=== PATIENT | female | born 1970 | race Caucasian/White ===

== ENCOUNTER 2016-08-09 12:48 | Emergency (ER) | payer OTHER ==
[~2016-08-09] VITALS: Ht 160 cm; Wt 95.3 kg
[2016-08-09 13:07] VITALS: BP 139/90
[2016-08-09] MEDS ORDERED: VENTOLIN HFA18 GM IH (16:16)
[2016-08-09] MEDS ORDERED: TRAMADOL HCL50 MG PO (17:29)
== END 2016-08-09 17:57 | disposition home or self-care (01) ==
LOC: EME 12:48 → RME 12:48
DX: R51 Headache (principal); Z86.73 Personal history of transient ischemic attack (TIA), and cerebral infarction without residual deficits
CPT/HCPCS: 70486; 99281; 99283

== ENCOUNTER 2017-06-25 11:54 | Emergency (ER) | payer OTHER ==
[~2017-06-25] VITALS: Ht 160 cm; Wt 97.6 kg
[~2017-06-25 11:54] MED LIST: TRAMADOL HCL50 MG PO; VENTOLIN HFA18 GM IH
[2017-06-25 12:22] LABS: HEMATOCRIT 37.8 % (36.0-46.0); MCH 31.7 PG (29.0-34.0); MCHC 35.4 G/DL (30.0-36.0); MCV 89.4 FL (83-99); MEAN PLAT.VOLUME 8.8 uM^3 (9.5-12.4); PLATELET COUNT 278 K/uL (156-360); RBC DIS.WIDTH-CV 11.9 % (11.8-14.6); RBC DIS.WIDTH-SD 38.1 % (39-53); RED BLOOD COUNT 4.23 M/uL (3.80-5.20)
[2017-06-25 12:35] LABS: CHLORIDE 105 mEq/L (99-109); SODIUM 140 mEq/L (136-147)
[2017-06-25 12:37] LABS: GLUCOSE 96 mg/dL (70-99)
[2017-06-25 12:38] LABS: ANION GAP 10 MEQ/L (2-14)
[2017-06-25 12:39] LABS: TOTAL BILIRUBIN 0.4 mg/dL (0.0-1.0)
[2017-06-25 12:40] LABS: ALKALINE PHOSPHATASE 81 IU/L (3-129)
[2017-06-25 12:41] LABS: GFR ESTIMATE (CALCULATED) > 59 mL/min/
[2017-06-25 12:42] LABS: UREA NITROGEN (BUN) 12 mg/dL (9-23)
[2017-06-25 12:50] LABS: QUANTITATIVE HCG < 4.0 MIU/ML
[2017-06-25 13:23] LABS: ADD MIUA? YES; BILIRUBIN NEGATIVE; BLOOD SMALL; COLOR YELLOW ((YELLOW)); GLUCOSE (STRIP) NEGATIVE; KETONES NEGATIVE; LEUKOCYTES NEGATIVE; NITRITE NEGATIVE; PROTEIN (STRIP) 30; SPECIFIC GRAVITY 1.015 (1.000-1.030); UROBILINOGEN 0.2 MG/DL (0.2-1.0)
[2017-06-25 13:27] LABS: BACTERIA RARE /HPF; EPITHELIAL CELLS RARE /HPF; MUCUS TRACE /LPF; UCUL ADDED? NO; WHITE BLOOD CELLS 0-5 /HPF (0-5)
[2017-06-25 14:03] LABS: LIPASE 9 U/L (1.0-51.0)
[2017-06-25] MEDS ORDERED: BENTYL10 MG PO (14:58)
[2017-06-25 15:20] VITALS: BP 145/87
[2017-06-25] MEDS ORDERED: FLEET ENEMA-AD118 ML PR (15:44)
[2017-06-25] MEDS ORDERED: CITRATE OF MAG296 ML PO (15:44)
== END 2017-06-25 15:44 | disposition home or self-care (01) ==
LOC: EME 11:54
DX: R10.9 Unspecified abdominal pain (principal); K59.00 Constipation, unspecified; R11.0 Nausea; Q63.1 Lobulated, fused and horseshoe kidney; N20.0 Calculus of kidney; Z87.891 Personal history of nicotine dependence
CPT/HCPCS: 74177; 80053; 81003; 83690; 84702; 85027; 99281; 99285; J1885; J7030

== ENCOUNTER 2017-09-14 07:43 | Emergency (ER) | payer OTHER ==
[~2017-09-14] VITALS: Ht 160 cm; Wt 99.1 kg
[~2017-09-14 07:43] MED LIST changes: +BENTYL10 MG PO; +CITRATE OF MAG296 ML PO; +FLEET ENEMA-AD118 ML PR
[2017-09-14 08:28] LABS: BASOPHIL (%) 0.4 % (0-1); EOSINOPHIL COUNT 0.1 K/uL (0-0.3); HEMATOCRIT 41.2 % (36.0-46.0); HEMOGLOBIN 14.4 G/DL (11.9-15.5); IMMATURE GRANULOCYTE (%) 0.4 % (0.0-0.7); LYMPHOCYTE (%) 21.1 % (15-42); MCV 88.6 FL (83-99); MONOCYTE (%) 5.5 % (3-12); MONOCYTE COUNT 0.5 K/uL (0-0.8); NEUTROPHIL (%) 71.6 % (45-76); NEUTROPHIL COUNT 6.7 K/uL (1.8-6.4); PLATELET COUNT 332 K/uL (156-360); RBC DIS.WIDTH-CV 12.2 % (11.8-14.6); RBC DIS.WIDTH-SD 39.6 % (39-53); RED BLOOD COUNT 4.65 M/uL (3.80-5.20); WHITE BLOOD COUNT 9.3 K/uL (4.1-10.2)
[2017-09-14 08:34] LABS: APPEARANCE SL.HAZY ((CLEAR)); BILIRUBIN NEGATIVE; BLOOD LARGE; COLOR YELLOW ((YELLOW)); GLUCOSE (STRIP) NEGATIVE; KETONES NEGATIVE; LEUKOCYTES NEGATIVE; NITRITE NEGATIVE; PROTEIN (STRIP) 30; SPECIFIC GRAVITY 1.013 (1.000-1.030); UROBILINOGEN 0.2 MG/DL (0.2-1.0)
[2017-09-14 08:39] LABS: ALBUMIN 4.2 g/dL (3.2-4.8); CHLORIDE 104 mEq/L (99-109)
[2017-09-14 08:41] LABS: GLUCOSE 115 mg/dL (70-99)
[2017-09-14 08:42] LABS: TOTAL PROTEIN 6.8 g/dL (6.4-8.3)
[2017-09-14 08:43] LABS: TOTAL BILIRUBIN 0.3 mg/dL (0.0-1.0)
[2017-09-14 08:45] LABS: CREATININE 0.8 mg/dL (0.6-1.3); GFR ESTIMATE (CALCULATED) > 59 mL/min/
[2017-09-14 08:46] LABS: UREA NITROGEN (BUN) 18 mg/dL (9-23)
[2017-09-14 08:57] LABS: SODIUM 138 mEq/L (136-147)
[2017-09-14 09:03] LABS: ALKALINE PHOSPHATASE 82 IU/L (3-129)
[2017-09-14 09:05] LABS: AST (GOT) 11 IU/L (2-34)
[2017-09-14 09:06] LABS: RED BLOOD CELLS 15-20 /HPF (0-5); WHITE BLOOD CELLS 0-5 /HPF (0-5)
[2017-09-14 09:06] LABS: ALT (GPT) 10 IU/L (3-49)
[2017-09-14 09:07] LABS: BACTERIA 1+ /HPF; EPITHELIAL CELLS RARE /HPF; MUCUS 2+ /LPF; RED CELL CASTS 0-5 /LPF; UCUL ADDED? NO
[2017-09-14 09:50] VITALS: BP 133/74
== END 2017-09-14 09:50 | disposition home or self-care (01) ==
LOC: EME 07:43
PROVIDERS: Emergency Medicine
DX: N20.0 Calculus of kidney (principal); Q63.1 Lobulated, fused and horseshoe kidney; Z87.442 Personal history of urinary calculi; K58.9 Irritable bowel syndrome, unspecified; F17.200 Nicotine dependence, unspecified, uncomplicated
CPT/HCPCS: 74176; 80053; 81003; 81025; 85025; 99281; 99284; J7030

== ENCOUNTER 2018-01-31 20:46 | Observation (INO) | payer OTHER ==
[~2018-01-31] VITALS: Ht 160 cm; Wt 97.0 kg
[2018-01-31 21:44] LABS: HEMATOCRIT 38.3 % (36.0-46.0); HEMOGLOBIN 13.7 G/DL (11.9-15.5); MCH 31.4 PG (29.0-34.0); MCHC 35.8 G/DL (30.0-36.0); MCV 87.6 FL (83-99); PLATELET COUNT 312 K/uL (156-360); RBC DIS.WIDTH-SD 38.8 % (39-53); RED BLOOD COUNT 4.37 M/uL (3.80-5.20)
[2018-01-31 22:11] LABS: CHLORIDE 107 mEq/L (99-109); POTASSIUM 3.6 mEq/L (3.7-5.4); SODIUM 140 mEq/L (136-147)
[2018-01-31 22:12] LABS: GLUCOSE 93 mg/dL (70-99)
[2018-01-31 22:16] LABS: CREATININE 0.8 mg/dL (0.6-1.3); GFR ESTIMATE (CALCULATED) > 59 mL/min/
[2018-01-31 22:17] LABS: UREA NITROGEN (BUN) 24 mg/dL (9-23)
[2018-01-31 22:30] LABS: ERTH.SED.RATE 6 MM/HR (0-20)
[2018-02-01 02:36] LABS: HDL CHOLESTEROL 53 MG/DL (Desirable>=50); LDL CHOLESTEROL 132 mg/dL (Desirable<100); NON-HDL CHOLESTEROL 163 mg/dL (Desirable<160); TOTAL CHOLESTEROL 216 mg/dL (Desirable<200); TRIGLYCERIDES 157 MG/DL (Normal: <150)
[2018-02-01 02:49] VITALS: BP 154/93
[2018-02-01] MEDS ORDERED: EFFEXOR37.5 MG PO (03:51)
[2018-02-01] MEDS ORDERED: OMEPRAZOLE20 MG PO (03:52)
[2018-02-01] MEDS ORDERED: EFFEXOR75 MG PO (03:52)
[2018-02-01] MEDS ORDERED: RANITIDINE HCL150 MG PO (03:53)
[2018-02-01 06:59] VITALS: BP 135/77
[2018-02-01] MEDS ORDERED: OXCARBAZEPINE300 MG PO (09:58)
[2018-02-01] MEDS ORDERED: ATORVASTATIN CA40 MG PO ×2 (09:58→12:34)
[2018-02-01] MEDS ORDERED: ASPIRIN EC325 MG PO (09:58)
[2018-02-01] MEDS ORDERED: CLONIDINE HCL0.1 MG PO ×2 (09:58→11:53)
[2018-02-01 11:21] VITALS: BP 149/79
[2018-02-01] MEDS ORDERED: CLONIDINE HCL0.2 MG PO ×2 (11:30→12:34)
[2018-02-01] MEDS ORDERED: BUTALB-APAP-CA1 EACH PO (11:56)
[2018-02-01] MEDS ORDERED: CLARITIN10 MG PO (11:56)
[2018-02-01 12:56] LABS: HEMOGLOBIN A1c (GLYCOHEMOGLOB) 5.2 % (Below 5.7)
== END 2018-02-01 13:34 | disposition home or self-care (01) ==
LOC: EME 20:46 → EXP 20:46 → EDOF 02-01 00:58 → ENRESERV 02-01 01:08 → 4SOUTH 02-01 02:35 → ENPENDDIS 02-01 13:30 → 4SOUTH 02-01 13:34
DX: I16.0 Hypertensive urgency (principal); I10 Essential (primary) hypertension; H11.32 Conjunctival hemorrhage, left eye; Z86.73 Personal history of transient ischemic attack (TIA), and cerebral infarction without residual deficits; G43.909 Migraine, unspecified, not intractable, without status migrainosus; R53.82 Chronic fatigue, unspecified; G40.909 Epilepsy, unspecified, not intractable, without status epilepticus; E78.5 Hyperlipidemia, unspecified; F17.200 Nicotine dependence, unspecified, uncomplicated; Z79.82 Long term (current) use of aspirin; Z90.710 Acquired absence of both cervix and uterus; Z84.1 Family history of disorders of kidney and ureter
CPT/HCPCS: 70450; 70551; 71046; 80048; 80061; 83036; 85027; 85651; 93005; 93880; 99281; 99285; G0378; J1650